=== PATIENT | female | born 1950 | race Caucasian/White ===

== ENCOUNTER 2022-05-04 16:39 | Inpatient (IN) | payer MEDICARE, MEDICAID ==
[~2022-05-04] VITALS: Ht 162.6 cm; Wt 68.0 kg
[2022-05-04] MEDS ORDERED: NS IV 1000 ML 1,000 ML IV SCH (16:45)
[2022-05-04] MEDS ORDERED: KETOROLAC 30 MG/ML VIAL IVP STA (17:01)
[2022-05-04] MEDS ORDERED: ONDANSETRON 4 MG/2 ML (SDV) Z0FRAN IVP STA (17:01)
[2022-05-04 17:02] LABS: BASOPHILS # (AUTO) 0.1 10^3/uL (0.0-0.1); BASOPHILS % (AUTO) 0 % (0-10); EOSINOPHILS % (AUTO) 0 % (0-10); HEMATOCRIT 36 % (35-52); HEMOGLOBIN 11.5 g/dL (11.5-16.0); LYMPHOCYTES # (AUTO) 2.6 10^3/uL (1.0-4.0); LYMPHOCYTES % (AUTO) 12 % (12-44); MEAN CORPUSCULAR HEMOGLOBIN 26 pg (25-34); MEAN CORPUSCULAR HGB CONC 32 g/dL (32-36); MEAN CORPUSCULAR VOLUME 81 fL (80-99); MEAN PLATELET VOLUME 10.4 fL (9.0-12.2); MONOCYTES # (AUTO) 1.3 10^3/uL (0.0-1.0); MONOCYTES % (AUTO) 6 % (0-12); NEUTROPHILS # (AUTO) 18.8 10^3/uL (1.8-7.8); NEUTROPHILS % (AUTO) 82 % (42-75); PLATELET COUNT 247 10^3/uL (130-400); WHITE BLOOD COUNT 22.9 10^3/uL (4.3-11.0)
[2022-05-04 17:03] LABS: BILIRUBIN,URINE NEGATIVE (NEGATIVE); CLARITY,URINE CLEAR; COLOR,URINE YELLOW; GLUCOSE, URINE (UA) NEGATIVE (NEGATIVE); KETONES,URINE TRACE (NEGATIVE); LEUKOCYTE ESTERASE ,URINE NEGATIVE (NEGATIVE); NITRITE,URINE NEGATIVE (NEGATIVE); PH,URINE 5.5 (5-9); PROTEIN,URINE TRACE (NEGATIVE)
[2022-05-04 17:07] LABS: BACTERIA,URINE TRACE /HPF; WBC,URINE 0-2 /HPF
[2022-05-04 17:11] LABS: INR 0.9 (0.8-1.4); PROTHROMBIN TIME PATIENT 12.8 SEC (12.2-14.7)
--- NOTE | 2022-05-04 17:19 | ED General ---
General Chief Complaint: Respiratory Problems Stated Complaint: SOB; COUGH; FEVER; NAUSEA; HEADACHE Nursing Triage Note: PT TO ROOM FS05 VIA W/C WITH C/O SOB, COUGH, AND HEADACHE SINCE YESTERDAY. PT REPORTS HX OF LUNG CANCER. PT REPORTS HER RIGHT LUNG IS COLLAPSED SINCE A LOB ON RIGHT SIDE WAS REMOVED. Source of Information: Patient History of Present Illness Date Seen by Provider: May 04, 2022 Time Seen by Provider: 16:42 Initial Comments 72-year-old female presenting with complaints of 2 days of increased shortness of breath, cough, headache, nausea, vomiting, body aches. She states that she came up from [place] to visit family but has not been able to visit because she has felt so bad. She has another relative that lives by her and is in [place] visiting someone else and they also were sick. She has a history of lung cancer with surgery on her right lung. She wears oxygen at 3 L/min chronically. She has a history of gastric bypass, diabetes, hypertension, lung cancer, fibromyalgia, arthritis. She has not been able to eat or drink very much because of her nausea. She states that due to the gastric bypass she is not able to truly vomit but she occasionally can get up a little bit of liquid. She denies any diarrhea or pain with urination. She has not taken anything today for her headache and body pain Timing/Duration: 2-3 Days Severity: Severe Modifying Factors: worse with Movement Associated Systoms: Chest Pain (from coughing), Cough; No Diaphoresis; Fever/Chills, Headaches, Loss of Appetite, Malaise, Nausea/Vomiting; No Rash, No Seizure; Shortness of Air; No Syncope; Weakness Allergies and Home Medications Allergies Coded Allergies: No Known Drug Allergies (Verified Allergy, Unknown, 12/20/08) Patient Home Medication List Home Medication List Reviewed: Yes Review of Systems Review of Systems Constitutional: chills; No diaphoresis; fever EENTM: no symptoms reported Respiratory: cough, short of breath Cardiovascular: see HPI Gastrointestinal: nausea, vomiting Genitourinary: decreased output Musculoskeletal: other (generalized body aches and pains) Skin: No rash Psychiatric/Neurological: Headache Hematologic/Lymphatic: Denies Blood Clots Past Mhhrufv-Yqcqau-Zoaadh Hx Patient Social History Tobacco Use?: No Smoking Status: Former Smoker Smokeless Tobacco Frequency: Never a User Use of E-Cig and/or Vaping dev: No Use of E-Cig and/or Vaping Rory: Never a User Substance use?: No Alcohol Use?: No Pt feels they are or have been: No Immunizations Up To Date COVID19 Vaccine Electromechanical Technician: MODERNNya Past Medical History Surgery/Hospitalization HX: Lung cancer, Right lung surgery, HTN, DM, Fibromyalgia, Arthritis, Gastric Bypass surgery Physical Exam Vital Signs Vital Signs - First Documented Capillary Refill : Less Than 3 Seconds Height, Weight, BMI Height: '" Weight: lbs. oz. kg; 24.00 BMI Method: General Appearance: Chronically ill, Mild Distress HEENT: PERRL/EOMI; No Moist Mucous Membranes (slightly dry mucous membranes) Neck: Full Range of Motion, Normal Inspection, Non Tender, Supple Respiratory: Chest Non Tender, No Accessory Muscle Use, No Respiratory Distress, Decreased Breath Sounds (right more than left) Cardiovascular: Normal Peripheral Pulses, Tachycardia Gastrointestinal: Normal Bowel Sounds, No Pulsatile Mass, Non Tender, Soft Rectal: Deferred Extremity: Normal Capillary Refill, Normal Inspection, No Pedal Edema Neurologic/Psychiatric: Alert, Oriented x3, supervisor winding department II-XII Norm as Tested Skin: Normal Color, Warm/Dry; No Rash Focused Exam Sepsis Stage: Sepsis Possible Source: Pulmonary Lactate Level 05/04/22 16:55: Lactic Acid Level 0.92 Time of Focused Exam: 17:44 Respiratory: No Accessory Muscle Use, No Respiratory Distress, Decreased Breath Sounds; No Rhonci, No Stridor, No Wheezing Cardiovascular: Normal Peripheral Pulses, Tachycardia Capillary Refill: Less Than 3 Seconds Peripheral Pulses: 2+ Carotid (R), 2+ Carotid (L), 2+ Radial Pulses (R), 2+ Radial Pulses (L) Skin: normal color, warm/dry Lactic Acid Level Laboratory Tests Test 05/04/22 16:55 Lactic Acid Level 0.92 MMOL/L (0.50-2.00) Within 3hrs of presentation: Admin fluids, Admin ABX, Blood cultures prior to ABX's, Focus exam, Lactate level Progress/Results/Core Measures Suspected Sepsis SIRS Temperature: Pulse: 123 Respiratory Rate: 18 Laboratory Tests 05/04/22 16:55: White Blood Count 22.9H Blood Pressure 107 /67 Mean: 80 05/04/22 16:55: Lactic Acid Level 0.92 Laboratory Tests 05/04/22 16:55: Creatinine 0.73, INR Comment 0.9, Platelet Count 247, Total Bilirubin 0.4 Results/Orders Lab Results Laboratory Tests Test 05/04/22 16:45 05/04/22 16:55 Range/Units Urine Color YELLOW Urine Clarity CLEAR Urine pH 5.5 5-9 Urine Specific [place] >=1.030 1.016-1.022 Urine Protein TRACE H NEGATIVE Urine Glucose (UA) NEGATIVE NEGATIVE Urine Ketones TRACE H NEGATIVE Urine Nitrite NEGATIVE NEGATIVE Urine Bilirubin NEGATIVE NEGATIVE Urine Urobilinogen 1.0 < = 1.0 MG/DL Urine Leukocyte Esterase NEGATIVE NEGATIVE Urine RBC (Auto) 2+ H NEGATIVE Urine RBC NONE /HPF Urine WBC 0-2 /HPF Urine Squamous Epithelial Cells 2-5 /HPF Urine Crystals NONE /LPF Urine Bacteria TRACE /HPF Urine Casts NONE /LPF Urine Mucus LARGE H /LPF Urine Culture Indicated NO White Blood Count 22.9 H 4.3-11.0 10^3/uL Red Blood Count 4.43 3.80-5.11 10^6/uL Hemoglobin 11.5 11.5-16.0 g/dL Hematocrit 36 35-52 % Mean Corpuscular Volume 81 80-99 fL Mean Corpuscular Hemoglobin 26 25-34 pg Mean Corpuscular Hemoglobin Concent 32 32-36 g/dL Red Cell Distribution Width 17.4 H 10.0-14.5 % Platelet Count 247 130-400 10^3/uL Mean Platelet Volume 10.4 9.0-12.2 fL Immature Granulocyte % (Auto) 1 % Neutrophils (%) (Auto) 82 H 42-75 % Lymphocytes (%) (Auto) 12 12-44 % Monocytes (%) (Auto) 6 0-12 % Eosinophils (%) (Auto) 0 0-10 % Basophils (%) (Auto) 0 0-10 % Neutrophils # (Auto) 18.8 H 1.8-7.8 10^3/uL Lymphocytes # (Auto) 2.6 1.0-4.0 10^3/uL Monocytes # (Auto) 1.3 H 0.0-1.0 10^3/uL Eosinophils # (Auto) 0.0 0.0-0.3 10^3/uL Basophils # (Auto) 0.1 0.0-0.1 10^3/uL Immature Granulocyte # (Auto) 0.1 0.0-0.1 10^3/uL Neutrophils % (Manual) 87 % Lymphocytes % (Manual) 10 % Monocytes % (Manual) 3 % Prothrombin Time 12.8 12.2-14.7 SEC INR Comment 0.9 0.8-1.4 Activated Partial Thromboplast Time 30 24-35 SEC Sodium Level 141 135-145 MMOL/L Potassium Level 3.8 3.6-5.0 MMOL/L Chloride Level 104 98-107 MMOL/L Carbon Dioxide Level 28 21-32 MMOL/L Anion Gap 9 5-14 MMOL/L Blood Urea Nitrogen 19 H 7-18 MG/DL Creatinine 0.73 0.60-1.30 MG/DL Estimat Glomerular Filtration Rate 88 BUN/Creatinine Ratio 26 Glucose Level 115 H 70-105 MG/DL Lactic Acid Level 0.92 0.50-2.00 MMOL/L Calcium Level 8.7 8.5-10.1 MG/DL Corrected Calcium 9.3 8.5-10.1 MG/DL Total Bilirubin 0.4 0.1-1.0 MG/DL Aspartate Amino Transf (AST/SGOT) 10 5-34 U/L Alanine Aminotransferase (ALT/SGPT) 8 0-55 U/L Alkaline Phosphatase 121 40-136 U/L Troponin I < 0.30 <0.30 NG/ML C-Reactive Protein 31.68 H <0.50 MG/DL Total Protein 6.6 6.4-8.2 GM/DL Albumin 3.3 3.2-4.5 GM/DL Lipase 35 8-78 U/L Influenza Type A (RT-PCR) Not Detected Not Detecte Influenza Type B (RT-PCR) Not Detected Not Detecte SARS-CoV-2 RNA (RT-PCR) Detected H Not Detecte My Orders Orders - YOAN LOVELACE MD Monitor-Rhythm Ecg Trace Only (05/04/22 16:44) Ed Iv/Invasive Line Start (05/04/22 16:44) Cbc With Automated Diff (05/04/22 16:44) Comprehensive Metabolic Panel (05/04/22 16:44) Crp Fs (05/04/22 16:44) Troponin I Fs (05/04/22 16:44) Protime With Inr (05/04/22 16:44) Partial Thromboplastin Time (05/04/22 16:44) Ekg Tracing (05/04/22 16:44) Ns Iv 1000 Ml (Sodium Chloride 0.9%) (05/04/22 16:45) Blood Culture (05/04/22 16:44) Lipase (05/04/22 16:44) Covid 19 Inhouse Test (05/04/22 16:44) Ua Culture If Indicated (05/04/22 16:44) Lactic Acid Analyzer (05/04/22 16:44) Influenza A And B By Pcr (05/04/22 16:44) Isolation Central Supply Req (05/04/22 16:44) Chest 1 View Ap/Pa Only (05/04/22 16:44) Ketorolac Injection (Toradol Injection) (05/04/22 17:01) Ondansetron Injection (Zofran Injectio (05/04/22 17:01) O2 (05/04/22 17:02) Manual Differential (05/04/22 16:55) Dexamethasone Injection (Decadron Inje (05/04/22 17:33) Ceftriaxone 1 Gm Pre-Mix (Rocephin 1 Gm (05/04/22 17:33) Azithromycin Injection (Zithromax Inject (05/04/22 17:33) Lactated Ringers (Lr 1000 Ml Iv Solution (05/04/22 18:00) Ed Admission (Communication) (05/04/22 17:57) Fentanyl Inj (Sublimaze Injection) (05/04/22 20:08) Vital Signs/I&O 05/04/22 05/04/22 05/04/22 16:44 16:44 16:44 Temp 38.2 Pulse 123 Resp 18 B/P (MAP) 107/67 (80) Pulse Ox 95 95 O2 Delivery Nasal Cannula Nasal Cannula Nasal Cannula O2 Flow Rate 3.00 3.00 3.00 Capillary Refill : Less Than 3 Seconds Blood Pressure Mean: 80 Progress Note #1: Progress Note Obtain swab for COVID and influenza. Check basic labs as well as blood cultures and lactic acid. Electrocardiogram for her fast heart rate and palpitations. Chest x-ray to evaluate for pneumonia or acute pulmonary issue. Continue with home oxygen at 3 L/min. Give normal saline 1 L IV fluid bolus for hydration, Toradol for headache and pain, Zofran for nausea. Differential diagnosis includes COVID, influenza, pneumonia, sepsis, dehydration, UTI, gastritis, gastroenteritis Progress Note #2: Progress Note Labs shows elevated white blood cell count 22.9 thousand. She does have a left shift. Her lactic acid is normal at 0.92. Chemistry panel shows elevated CRP but negative troponin and no acute significant abnormality on her electrolytes. Urinalysis is concentrated with greater than 1.030 specific gravity. She does not have leukocyte esterase, nitrites, bacteria. She does have ketones in her urine. Her heart rate is down to 10 5-1 10 from the initial 120 that she was. Her blood pressure is improved to 116/56 from her initial 107 systolic pressure. She is satting 97 to 98% on her home 3 L of oxygen. Influenza swab was negative but COVID swab was positive With her tachycardia, elevated white blood cell count, positive COVID infection and possible pneumonia on chest x-ray she would meet sepsis criteria. She is not septic shock or severe sepsis as there is no organ injury. Will check with Dr. Mckeon the on-call hospitalist about admission. [address] Mckeon, and she accepted the patient for admission. She will go to a [facility] floor bed and Dr. Mckeon will place queued orders. We will continue IV fluids lactated Ringer's 150 mils per hour. Administer 10 mg of IV Decadron, Rocephin 1 g IV, Zithromax 500 mg IV to try and help with her diagnosis of COVID and possible pneumonia in the right lower lobe. Progress Note #3: Progress Note Just prior to EMS transporting the patient to [place] she was complaining of her headache pounding again. Initially she had told me that her headache was improved with initial treatment. Will administer fentanyl 50 mcg IV prior to transfer to try and help with pain ECG Initial ECG Impression Date: May 04, 2022 Initial ECG Impression Time: 16:50 Initial ECG Rate: 118 Initial ECG Rhythm: S.Tach Initial ECG Comparisson: No Previous ECG Available Comment Sinus tachycardia with heart rate of 118 bpm. ID interval 152 ms. QT interval 323 ms with a QTc interval [address] elevation. Frequent supraventricular premature complexes. No prior tracing available for comparison. Diagnostic Imaging Diagonstic Imaging: Xray Plain Films/CT/US/NM/MRI: chest Comments [facility] [place] NAME: [facility] REC#: [id number] PT STATUS: REG ER : 1950 PHYSICIAN: YOAN LOVELACE MD ADMIT DATE: 05/04/22/ER FS Draft Date of Exam:05/04/22 CHEST 1 VIEW AP/PA ONLY INDICATION: Shortness of breath and cough. FINDINGS: Bilateral pleural effusions, greater right, present. There is lower lobe infiltrate or atelectasis on the right. There is background emphysema. The left clavicle postsurgical. No pneumothorax. No failure pattern. IMPRESSION: 1. Bilateral effusions, greater right. Right perihilar and lower lobe consolidations in part atelectasis. Pneumonia superimposed could not be excluded radiographically. 2. COPD with no pneumothorax or overt failure pattern. Dictated on workstation # [id number] Dict: 05/04/22 1709 Trans: 05/04/221714 [facility] [id number] Interpreted by: PADMINI DOSHI Electronically signed by: Reviewed: Reviewed by Sd Departure Communication (Admissions) Time/Spoke to Admitting Phy: 17:[address] Jorge for the hospitalist service and she accepted the patient for admission. Will admit for sepsis and COVID. Impression Primary Impression: COVID-19 virus infection Additional Impressions: Sepsis Qualified Codes: A41.9 - Sepsis, unspecified organism Dehydration Community acquired pneumonia of right lower lobe of lung Disposition: 30 STILL A PATIENT Condition: Stable Admissions Decision to Admit Reason: Admit from ER (General) Decision to Admit/Date: May 04, 2022 Time/Decision to Admit Time: 17:55 Departure-Patient Inst. Referrals: NO,LOCAL PHYSICIAN (PCP/Family) Primary Care Physician YOAN LOVELACE MD May 04, 2022 17:19
[2022-05-04 17:26] LABS: ALANINE AMINOTRANSFERASE 8 U/L (0-55); ALBUMIN 3.3 GM/DL (3.2-4.5); ALKALINE PHOSPHATASE 121 U/L (40-136); BILIRUBIN,TOTAL 0.4 MG/DL (0.1-1.0); BUN/CREATININE RATIO 26; CALCIUM 8.7 MG/DL (8.5-10.1); CARBON DIOXIDE 28 MMOL/L (21-32); CHLORIDE 104 MMOL/L (98-107); CREATININE SERUM 0.73 MG/DL (0.60-1.30); GFR ESTIMATED 88; GLUCOSE 115 MG/DL (70-105); POTASSIUM 3.8 MMOL/L (3.6-5.0); SODIUM 141 MMOL/L (135-145); TOTAL PROTEIN 6.6 GM/DL (6.4-8.2)
[2022-05-04 17:33] LABS: LYMPHOCYTES % (MANUAL) 10 %; MONOCYTES % (MANUAL) 3 %; NEUTROPHILS % (MANUAL) 87 %
[2022-05-04] MEDS ORDERED: cefTRIAXone 1 GM PRE-MIX 50 ML IV STA (17:33)
[2022-05-04] MEDS ORDERED: AZITHROMYCIN INJECTION 500 MG in NS (IVPB) 250 ML IV STA (17:33)
[2022-05-04] MEDS ORDERED: LACTATED RINGERS 1,000 ML IV SCH (18:00)
[2022-05-04] MEDS ORDERED: fentaNYL INJ 100 MCG/2 ML AMP IVP STA (20:08)
[2022-05-04 20:57] VITALS: BP 121/64
[2022-05-04] MEDS ORDERED: ACETAMINOPHEN 325 MG TABLET PO PRN (21:15)
[2022-05-04] MEDS ORDERED: ONDANSETRON 4 MG/2 ML (SDV) Z0FRAN IV PRN (21:15)
[2022-05-04] MEDS ORDERED: NS IV 1000 ML 1,000 ML ONE (21:16)
[2022-05-04] MEDS: NS IV 1000 ML 1,000 ML IV SCH (21:29)
[2022-05-04] MEDS: ENOXAPARIN 40 MG/0.4 ML (LOVENOX) SYR SC SCH (21:33)
[2022-05-05 00:23] VITALS: BP 114/56
[2022-05-05 03:34] VITALS: BP 129/76
[2022-05-05 07:56] VITALS: BP 155/76
[2022-05-05] MEDS: NS IV 1000 ML 1,000 ML IV SCH ×3 (08:19→20:03)
[2022-05-05] MEDS: guaiFENesin SYRUP 100 MG/5 ML 10 ML (ROBITUSSIN SF) PO PRN ×3 (08:25→21:11)
[2022-05-05 09:04] LABS: BASOPHILS % (AUTO) 0 % (0-10); EOSINOPHILS % (AUTO) 0 % (0-10); HEMATOCRIT 37 % (35-52); HEMOGLOBIN 11.3 g/dL (11.5-16.0); LYMPHOCYTES # (AUTO) 0.5 10^3/uL (1.0-4.0); LYMPHOCYTES % (AUTO) 6 % (12-44); MEAN CORPUSCULAR HEMOGLOBIN 26 pg (25-34); MEAN CORPUSCULAR HGB CONC 31 g/dL (32-36); MEAN CORPUSCULAR VOLUME 84 fL (80-99); MEAN PLATELET VOLUME 10.5 fL (9.0-12.2); MONOCYTES # (AUTO) 0.2 10^3/uL (0.0-1.0); MONOCYTES % (AUTO) 2 % (0-12); NEUTROPHILS # (AUTO) 8.9 10^3/uL (1.8-7.8); NEUTROPHILS % (AUTO) 92 % (42-75); PLATELET COUNT 190 10^3/uL (130-400); WHITE BLOOD COUNT 9.7 10^3/uL (4.3-11.0)
[2022-05-05 09:21] LABS: CREATININE SERUM 0.68 MG/DL (0.60-1.30)
[2022-05-05 11:15] VITALS: BP 131/64
[2022-05-05] MEDS ORDERED: LEVOTHYROXINE 50 MCG (LEVOTHROID) TAB PO NR (11:15)
[2022-05-05] MEDS ORDERED: VERAPAMIL SR 240 MG (CALAN SR) TAB PO NR (11:15)
[2022-05-05] MEDS: IBUPROFEN 600 MG (MOTRIN) TAB PO PRN ×2 (11:53→20:13)
--- NOTE | 2022-05-05 14:52 | History & Physical-Hospitalist ---
History of Present Illness HPI/Chief Complaint Ana Lilia Zheng is a 72 year old female with PMH HTN, hypothyroidism, COPD on 3 L continuous oxygen, lung cancer s/p radiation, who presented with shortness of breath. She also reports cough. She is having some chest pain with the cough. She also reports headache. She denies nausea and vomiting. She denies abdominal pain. She denies leg swelling. She has undergone several bronchoscopies for her lung cancer. She underwent radiaton. She has not done chemotherapy. She says they are trying to avoid performing a lobectomy because of her COPD. Source: patient Exam Limitations: no limitations Date Seen 05/05/22 Time Seen by a Provider: 10:20 Attending Physician No,Local Physician PCP Admitting Physician: Patricia Mckeon MD Attending Physician: Jade Calle MD Referring Physician Date of Admission May 04, 2022 at 21:04 Home Medications & Allergies Home Medications Reviewed patient Home Medication Reconciliation performed by pharmacy medication reconciliations automotive lube technician and/or nursing. Patients Allergies have been reviewed. Allergies Allergies Coded Allergies No Known Drug Allergies (Verified12/20/08) Past Bucndpf-Clofxc-Mvxixv Hx Patient Social History Tobacco Use?: No Smoking Status: Former Smoker Smokeless Tobacco Frequency: Never a User Use of E-Cig and/or Vaping dev: No Use of E-Cig and/or Vaping Rory: Never a User Substance use?: No Alcohol Use?: No Pt feels they are or have been: No Current Status status: No status: No Advance Directives: No Communicates: Verbally Primary Language: Faroese Preferred Spoken Language: Faroese Is interpretation needed?: No Sensory deficits: Vision impairment Implanted or Applied Medical D: Orthopedic hardware Past Medical History COPD Hypertension Hypothyroidsim Lung Family Medical History No Pertinent Family Hx Review of Systems Constitutional: malaise, weakness Respiratory: cough, short of breath Cardiovascular: chest pain Gastrointestinal: no symptoms reported Genitourinary: no symptoms reported Musculoskeletal: no symptoms reported Physical Exam Physical Exam Vital Signs Vital Signs - First Documented Capillary Refill : Less Than 3 Seconds Height, Weight, BMI Height: '" Weight: lbs. oz. kg; 25.71 BMI Method: General Appearance: No Apparent Distress, WD/WN HEENT: PERRL/EOMI, Pharynx Normal Neck: Normal Inspection, Supple Respiratory: No Respiratory Distress, Decreased Breath Sounds Cardiovascular: Regular Rate, Rhythm, No Murmur Gastrointestinal: Normal Bowel Sounds, Non Tender, Soft Extremity: Normal Inspection, Non Tender, No Pedal Edema Neurologic/Psychiatric: Alert, Oriented x3, No Motor/Sensory Deficits, Depressed Affect Skin: Normal Color, Warm/Dry Results Results/Procedures Labs Laboratory Tests 05/04/22 16:55 05/05/22 08:55 Patient resulted labs reviewed. Imaging: Reviewed Imaging Report Assessment/Plan Admission Diagnosis Sepsis due to pneumonia Admission Status: Inpatient Order (span 2 midnights) Reason for Inpatient Admission: IV antibiotics Assessment and Plan Sepsis due to pneumonia COVID-19 COPD Chronic respiratory failure with hypoxia Lung cancer SIRS+ with fever, tachycardia, leukocytosis CXR with right lower lobe infiltrate Rocephin and Azithromycin COVID positive Decadron Oxygen requirement at baseline MAT protocol HTN Hypothyroidism Continue home meds DVT prophylaxis: Lovenox Diagnosis/Problems Diagnosis/Problems (1) Sepsis Status: Acute Qualifiers: Sepsis type: sepsis due to unspecified organism Sepsis acute organ dysfunction status: without acute organ dysfunction Qualified Codes: A41.9 - Sepsis, unspecified organism (2) Community acquired pneumonia of right lower lobe of lung Status: Acute (3) COVID-19 virus infection Status: Acute (4) COPD (chronic obstructive pulmonary disease) Status: Chronic (5) Chronic respiratory failure with hypoxia Status: Chronic (6) Lung cancer Status: Chronic Qualifiers: Laterality: right Lung location: unspecified part of lung Qualified Codes: C34.91 - Malignant neoplasm of unspecified part of right bronchus or lung (7) HTN (hypertension) Status: Chronic (8) Hypothyroid Status: Chronic JADE CALLE MD May 05, 2022 14:52
[2022-05-05] MEDS ORDERED: RT-ALBUINH IH (15:39)
[2022-05-05] MEDS ORDERED: COLE1TAB PO (15:40)
[2022-05-05] MEDS ORDERED: CLC600T PO (15:40)
[2022-05-05] MEDS ORDERED: MULT-1136 PO (15:42)
[2022-05-05] MEDS ORDERED: CNC1KV IM (15:42)
[2022-05-05] MEDS ORDERED: FURO20TA4 PO (15:43)
[2022-05-05] MEDS ORDERED: GUAI600T43 PO (15:44)
[2022-05-05] MEDS ORDERED: FLUT1BLS15 IH (15:46)
[2022-05-05] MEDS ORDERED: HYDR-3820 PO (15:46)
[2022-05-05] MEDS ORDERED: LEVO50CA4 PO (15:47)
[2022-05-05] MEDS ORDERED: LISI30TA5 PO (15:47)
[2022-05-05] MEDS ORDERED: TIZA-186 PO (15:48)
[2022-05-05] MEDS ORDERED: VERA240C2 PO (15:48)
[2022-05-05] MEDS ORDERED: PANT40TA52 PO (15:48)
[2022-05-05] MEDS ORDERED: NF-ZOL12.5 PO (15:49)
[2022-05-05] MEDS ORDERED: LORA10TA7 PO (15:49)
[2022-05-05] MEDS ORDERED: IRBE300T17 PO (15:50)
[2022-05-05 15:58] VITALS: BP 108/58
[2022-05-05] MEDS ORDERED: AZITHROMYCIN 250 MG TAB (ZITHROMAX) PO SCH (18:00)
[2022-05-05] MEDS ORDERED: cefTRIAXone 1 GM PRE-MIX 50 ML IV SCH (18:00)
[2022-05-05 19:03] VITALS: BP 131/69
[2022-05-05] MEDS: ENOXAPARIN 40 MG/0.4 ML (LOVENOX) SYR SC SCH (20:04)
[2022-05-05] MEDS ORDERED: lisINopril 20 MG (PRINIVIL) TABLET PO SCH (21:00)
[2022-05-06 00:04] VITALS: BP 125/65
[2022-05-06 03:49] VITALS: BP 120/77
[2022-05-06] MEDS: IBUPROFEN 600 MG (MOTRIN) TAB PO PRN ×2 (04:05→12:12)
[2022-05-06] MEDS: guaiFENesin SYRUP 100 MG/5 ML 10 ML (ROBITUSSIN SF) PO PRN (04:05)
[2022-05-06] MEDS ORDERED: LEVOTHYROXINE 50 MCG (LEVOTHROID) TAB PO SCH (06:30)
[2022-05-06 07:36] VITALS: BP 138/66
[2022-05-06 07:49] VITALS: BP 138/66
[2022-05-06] MEDS ORDERED: RT-ALBUTEROL HFA 8.5 GM INHALER IH PRN (08:00)
[2022-05-06] MEDS ORDERED: VERAPAMIL SR 240 MG (CALAN SR) TAB PO SCH (09:00)
[2022-05-06] MEDS ORDERED: RT-ALBUTEROL HFA 8.5 GM INHALER IH SCH (10:00)
[2022-05-06] MEDS ORDERED: CEFD300C3 PO (10:29)
[2022-05-06] MEDS ORDERED: AZIT250T12 PO (10:29)
[2022-05-06] MEDS ORDERED: PRED10TA22 PO (10:29)
[2022-05-06] MEDS ORDERED: guaiFENesin/DM (ROBITUSSIN DM) 10 ML UDC PO PRN (10:30)
[2022-05-06] MEDS ORDERED: CEFDINIR 300 MG (OMNICEF) CAP PO NR (10:45)
[2022-05-06 11:09] VITALS: BP 135/63
[2022-05-06 13:18] VITALS: BP 135/63
--- NOTE | 2022-05-06 17:23 | Discharge Summary ---
Discharge Summary Hospital Course Problems/Dx: (1) Sepsis Status: Acute Qualifiers: Qualified Codes: A41.9 - Sepsis, unspecified organism (2) Community acquired pneumonia of right lower lobe of lung Status: Acute (3) COVID-19 virus infection Status: Acute (4) COPD (chronic obstructive pulmonary disease) Status: Chronic (5) Chronic respiratory failure with hypoxia Status: Chronic (6) Lung cancer Status: Chronic Qualifiers: Qualified Codes: C34.91 - Malignant neoplasm of unspecified part of right bronchus or lung (7) HTN (hypertension) Status: Chronic (8) Hypothyroid Status: Chronic Hospital Course Date of Admission: May 04, 2022 at 21:04 Admission Diagnosis : Family Physician/Provider: No,Local Physician Date of Discharge: 05/06/22 Discharge Diagnosis: [ ] Hospital Course: [ ] Labs and Pending Lab Test: Microbiology 05/04/22 Blood Culture - Preliminary, Resulted No growth Home Meds Active Prednisone 10 Mg Tab.ds.pk 10 Mg PO DAILY Take 6 tabs(60mg)daily,decrease by 1 tab(10MG)daily. Azithromycin 250 Mg Tablet 250 Mg PO DAILY 3 Days Cefdinir 300 Mg Capsule 300 Mg PO BID 5 Days Reported Irbesartan 300 Mg Tablet 300 Mg PO DAILY Loratadine 10 Mg Tablet 10 Mg PO DAILY Zolpidem Tartrate ER (Zolpidem Tartrate) 12.5 Mg Tab.mphase 12.5 Mg PO HS PRN Verapamil ER (Verapamil HCl) 240 Mg Cap24h.pel 240 Mg PO DAILY Tizanidine HCl 4 Mg Tablet 4 Mg PO HS Pantoprazole Sodium 40 Mg Tablet.dr 40 Mg PO HS Lisinopril 30 Mg Tablet 30 Mg PO HS Levothyroxine (Levothyroxine Sodium) 50 Mcg Capsule 50 Mcg PO DAILY Hydrocodone-Acetamin 10-325 mg (Hydrocodone/Acetaminophen) 10 Mg-325 Mg Tablet 1 Each PO Q6H PRN Trelegy Ellipta 200-62.5-25 (Fluticasone/Umeclidin/Vilanter) 200-62.5 Blst.w.dev 1 Each IH DAILY Mucinex (Guaifenesin) 600 Mg Tab.er.12h 1,200 Mg PO Q12H TAKES 2 (600MG) TAB Furosemide 20 Mg Tablet 20 Mg PO DAILY Cyanocobalamin Injection (Cyanocobalamin) 1,000 Mcg/Ml Inj 1,000 Mcg IM WEEKLY INJECTS ON THURSDAY Multivitamin 1 Each Tablet 1 Each PO DAILY Colestipol HCl 1 Gram Tablet 2 Gm PO BID TAKES 2 (1GM) TABS Calcium Carbonate 600 Mg Calcium (1500 Mg) Tablet 600 Mg PO DAILY Proair Hfa (Albuterol Sulfate) 1 Puff Puff 2 Puff IH Q6H PRN 1 PUFF = 90 MCG Assessment/Pt Instructions See instructions Discharge Planning: >30 minutes discharge planning Discharge Instructions Discharge Diet: No Restrictions Activity as Tolerated: Yes Discharge Physical Examination Vital Signs Vital Signs Date Time Temp Pulse Resp B/P (MAP) Pulse Ox O2 Delivery O2 Flow Rate FiO2 05/06/22 13:18 36.6 60 18 135/63 97 Nasal Cannula 3.00 Allergies: Coded Allergies: No Known Drug Allergies (Verified , 12/20/08) Discharge Summary Date of Admission May 04, 2022 at 21:04 Date of Discharge May 06, 2022 at 13:18 Discharge Date: May 06, 2022 Discharge Time: 13:18 Admission Diagnosis Sepsis due to pneumonia Discharge Diagnosis Sepsis due to pneumonia COVID-19 COPD Chronic respiratory failure with hypoxia Lung cancer (1) Sepsis Status: Acute Qualifiers: Qualified Codes: A41.9 - Sepsis, unspecified organism (2) Community acquired pneumonia of right lower lobe of lung Status: Acute (3) COVID-19 virus infection Status: Acute (4) COPD (chronic obstructive pulmonary disease) Status: Chronic (5) Chronic respiratory failure with hypoxia Status: Chronic (6) Lung cancer Status: Chronic Qualifiers: Qualified Codes: C34.91 - Malignant neoplasm of unspecified part of right bronchus or lung (7) HTN (hypertension) Status: Chronic (8) Hypothyroid Status: Chronic JADE MCKEON MD May 06, 2022 17:23
== END 2022-05-06 13:18 | disposition home or self-care (01) | DRG 871 ==
LOC: EDUNIT# 16:39 → ER FS 16:41 → 4TH 21:04
PROVIDERS: ADMIT Family Medicine; ATTEND Internal Medicine
DX: A41.89 Other specified sepsis (principal); U07.1 COVID-19; J12.82 Pneumonia due to coronavirus disease 2019; J96.11 Chronic respiratory failure with hypoxia; J43.9 Emphysema, unspecified; E86.0 Dehydration; E11.9 Type 2 diabetes mellitus without complications; I10 Essential (primary) hypertension; M79.7 Fibromyalgia; M19.91 Primary osteoarthritis, unspecified site; E03.9 Hypothyroidism, unspecified; Z87.891 Personal history of nicotine dependence; Z85.118 Personal history of other malignant neoplasm of bronchus and lung; Z90.2 Acquired absence of lung [part of]; Z98.84 Bariatric surgery status
CPT/HCPCS: 36415; 71045; 80048; 80053; 81000; 83605; 83690; 84145; 84484; 85007; 85025; 85027; 85610; 85730; 86141; 87040; 87636; 93005; 93041; 94640; 94664

== ENCOUNTER 2022-12-27 15:37 | Emergency (ER) | payer MEDICARE, MEDICAID ==
[~2022-12-27 15:37] MED LIST: ALBU8.5H6 IH; AZIT250T12 PO; CEFD300C3 PO; CLC600T PO; CNC1KV IM; COLE1TAB PO; FLUT1BLS15 IH; FURO20TA4 PO; GUAI600T43 PO; HYDR-3820 PO; IRBE300T17 PO; LEVO50CA4 PO; LISI30TA5 PO; LORA10TA7 PO; MULT-1136 PO; NF-ZOL12.5 PO; PANT40TA52 PO; PRED10TA22 PO; TIZA-186 PO; VERA240C2 PO
[2022-12-27] MEDS ORDERED: MIDAZOLAM 5 MG/5 ML (VERSED) VIAL INJ ONE (15:40)
[2022-12-27] MEDS ORDERED: EPINEPHrine 0.1 MG/ML 10 ML (HOSPIRA) SYR INJ ONE (15:40)
[2022-12-27] MEDS ORDERED: CATHETER FLUSH 10 ML SYR IVP ONE (15:40)
[2022-12-27] MEDS ORDERED: SUCCINYLCHOLINE INJ 20 MG/1 ML 10 ML VIAL INJ ONE (15:40)
--- NOTE | 2022-12-27 16:17 | ED CPR ---
HPI-CPR General Stated Complaint: UNRESPONSIVE Source of Information: EMS, Family Exam Limitations: Other (actively being coded) History of Present Illness Date Seen by Provider: Dec 27, 2022 Time Seen by Provider: 15:36 Initial Comments 72-year-old female presenting by EMS from her daughter's home here in [place]. Patient lives in [facility]. She has a longstanding history of lung cancer and was receiving chemotherapy and radiation treatments. She also has a history of hypothyroidism and high blood pressure and COPD. This afternoon she was feeling weak and family had checked her blood pressure and found it to be low at approximately 100/50. EMS was activated to evaluate her and bring her to the emergency department. After arrival by EMS the left after on dual content into their ambulance. As they were transporting here to the emergency department she stopped breathing and lost her pulse. They reported that she went into asystole and they put her on AED monitor and started breathing for a with a [id number] as well as during chest compressions. Since it was a BLS crew they did not start any IV access. They did continue to assist breathing with bag valve mask and the AED never advised a shock so they were continuing chest compressions. On arrival to the ED a pulse check was performed and she had agonal respiration but was asystole and no palpable or auscultory heart beat or pulse. MARIANELA compression device was applied and continued chest compressions while ventilating with bag valve mask. Epinephrine 1 mg IV was ordered and patient found to have port right upper chest wall that was already accessed on arrival to ED. CPR continued via ACLS protocols while I prepared equipment for intubation and an intubation tray was pulled from the [facility] for medications for RSI. She was given a 2nd dose of epinephrine prior to RSI medications of Midazolam 2 mg IV with Succinyl Choline 100 mg IV. Then using a MAC3 blade and 7.0 ETT I placed the tube and visualized it going through her vocal cords and secured at 22 cm at the gums. She had good color change on CO2 detector and equal breath sounds. She did have yellow colored mucus and liquid in the ETT that was suctioned. A third dose of epinephrine 1 mg IV was administered and continued chest compressions with MARIANELA device and ventilation with bag respirations through ET tube. After 2 minutes of circulation of the epinephrine a pulse and rhythm check was performed and patient was still in asystole. She continues to be in asystole and had fixed pupils that were not reactive. With CPR for over 30 minutes and no response or return of spontaneous circulation it was felt that further medicine and CPR was futile and she was pronounced at 1559. Initial Complaints: Collapsed, Dyspnea Witnessed Arrest: Yes Bystander CPR: Yes Pre Hospital Treatment: Bag Valve Mask, CPR/Thumper, Oxygen Allergies and Home Medications Allergies Coded Allergies: No Known Drug Allergies (Verified , 12/20/08) Patient Home Medication List Home Medication List Reviewed: Yes Albuterol Sulfate (Ventolin Hfa) 1 Puff Puff, 2 PUFF IH Q6H PRN for SHORTNESS OF BREATH, (Reported) Entered as Reported by: JANICE HUTCHINS on 05/05/22 1539 Azithromycin (Azithromycin) 250 Mg Tablet, 250 MG PO DAILY Prescribed by: JADE MCKEON on 05/06/22 1029 Calcium Carbonate (Calcium Carbonate) 600 Mg Calcium (1500 Mg) Tablet, 600 MG PO DAILY, (Reported) Entered as Reported by: JANICE HUTCHINS on 05/05/22 1540 Cefdinir (Cefdinir) 300 Mg Capsule, 300 MG PO BID Prescribed by: JADE MCKEON on 05/06/22 1029 Colestipol HCl (Colestipol HCl) 1 Gram Tablet, 2 GM PO BID, (Reported) Entered as Reported by: JANICE HUTCHINS on 05/05/22 1540 Cyanocobalamin (Cyanocobalamin Injection) 1,000 Mcg/Ml Inj, 1,000 MCG IM WEEKLY, (Reported) Entered as Reported by: JANICE HUTCHINS on 05/05/22 1542 Fluticasone/Umeclidin/Vilanter (Trelegy Ellipta 200-62.5-25) 200-62.5 Blst.w.dev, 1 EACH IH DAILY, (Reported) Entered as Reported by: JANICE HUTCHINS on 05/05/22 1546 Furosemide (Furosemide) 20 Mg Tablet, 20 MG PO DAILY, (Reported) Entered as Reported by: JANICE HUTCHINS on 05/05/22 1543 Guaifenesin (Mucinex) 600 Mg Tab.er.12h, 1,200 MG PO Q12H, (Reported) Entered as Reported by: JANICE HUTCHINS on 05/05/22 1544 Hydrocodone/Acetaminophen (Hydrocodone-Acetamin 10-325 mg) 10 Mg-325 Mg Tablet, 1 EACH PO Q6H PRN for PAIN-MODERATE (5-7), (Reported) Entered as Reported by: JANICE HUTCHINS on 05/05/22 154 Irbesartan (Irbesartan) 300 Mg Tablet, 300 MG PO DAILY, (Reported) Entered as Reported by: JANICE HUTCHINS on 05/05/22 1550 Levothyroxine Sodium (Levothyroxine) 50 Mcg Capsule, 50 MCG PO DAILY, (Reported) Entered as Reported by: JANICE HUTCHINS on 05/05/22 154 Lisinopril (Lisinopril) 30 Mg Tablet, 30 MG PO HS, (Reported) Entered as Reported by: JANICE HUTCHINS on 05/05/22 154 Loratadine (Loratadine) 10 Mg Tablet, 10 MG PO DAILY, (Reported) Entered as Reported by: JANICE HUTCHINS on 05/05/22 154 Multivitamin (Multivitamin) 1 Each Tablet, 1 EACH PO DAILY, (Reported) Entered as Reported by: JANICE HUTCHINS on 05/05/22 154 Pantoprazole Sodium (Pantoprazole Sodium) 40 Mg Tablet.dr, 40 MG PO HS, (Reported) Entered as Reported by: JANICE HUTCHINS on 05/05/22 154 Prednisone (Prednisone) 10 Mg Tab.ds.pk, 10 MG PO DAILY Prescribed by: JADE MCKEON on 05/06/22 1029 Tizanidine HCl (Tizanidine HCl) 4 Mg Tablet, 4 MG PO HS, (Reported) Entered as Reported by: JANICE HUTCHINS on 05/05/22 154 Verapamil HCl (Verapamil ER) 240 Mg Cap24h.pel, 240 MG PO DAILY, (Reported) Entered as Reported by: JANICE HUTCHINS on 05/05/22 154 Zolpidem Tartrate (Zolpidem Tartrate ER) 12.5 Mg Tab.mphase, 12.5 MG PO HS PRN for SLEEP, (Reported) Entered as Reported by: JANICE HUTCHINS on 05/05/22 154 Review of Systems Review of Systems Constitutional: see HPI, weakness Other Comments unable to obtain full ROS due to patient's status of being unresponsive and no cardiac activity. Past Fkkrmlq-Ezstgb-Osfbqi Hx Past Medical History Surgery/Hospitalization HX: Lung cancer, Right lung surgery, HTN, DM, Fibromyalgia, Arthritis, Gastric Bypass surgery COPD Hypertension Hypothyroidsim Lung Family Medical History No Pertinent Family Hx Physical Exam Vital Signs Capillary Refill : Height, Weight, BMI Height: '" Weight: lbs. oz. kg; 25.71 BMI Method: General Appearance: Chronically ill, Thin, Other (unresponsive and no cardiac activity on monitor, with auscultation or palpation for central pulse) HEENT: Other (pupils are fixed and dilated and not responding to light) Respiratory: Rhonci (with bag valve mask respirations) Cardiovascular: Other (asystole and no palpable pulse or auscultated heart beat) Extremity: Normal Capillary Refill (with chest compressions ) Neurologic/Psychiatric: Other (unresponsive) Skin: Cool, Pallor Procedures/Interventions Reason for Intubation: cardiopulmonary arrest Date of ETT Placement: Dec 27, 2022 Time of ETT Placement: 15:54 Intubation Method: orotracheal Tube Size: 7 Medications: Succinylcholine (100 mg), Versed (2 mg) Positive End Tide CO2: Yes Breath Sounds after Intubation: bilateral-equal Intubation Complications: no complications Post Intubation Xray: No Due to her cardiopulmonary arrest and not responding would just pjw-[id number] ventilation and chest compressions and ET tube was placed. Using a MAC 3 blade and laryngoscope and orotracheal ET tube that was 7.0 was placed and secured at 22 cm at the gum. She was premedicated with midazolam 2 mg IV and succinylcholine 100 mg IV. I visualized the tube passing through the cords. She did have a lot of yellow secretions that were suctioned from the ET tube. She had good color change on CO2 detector and equal bilateral breath sounds. CPR: 72-year-old female presenting by EMS from her daughter's home here in [place]. Patient lives in [facility]. She has a longstanding history of lung cancer and was receiving chemotherapy and radiation treatments. She also has a history of hypothyroidism and high blood pressure and COPD. This afternoon she was feeling weak and family had checked her blood pressure and found it to be low at approximately 100/50. EMS was activated to evaluate her and bring her to the emergency department. After arrival by EMS the left after on dual content into their ambulance. As they were transporting here to the emergency department she stopped breathing and lost her pulse. They reported that she went into asystole and they put her on AED monitor and started breathing for a with a [id number] as well as during chest compressions. Since it was a S crew they did not start any IV access. They did continue to assist breathing with bag valve mask and the AED never advised a shock so they were continuing chest compressions. On arrival to the ED a pulse check was performed and she had agonal respiration but was asystole and no palpable or auscultory heart beat or pulse. MARIANELA compression device was applied and continued chest compressions while ventilating with bag valve mask. Epinephrine 1 mg IV was ordered and patient found to have port right upper chest wall that was already accessed on arrival to ED. CPR continued via ACLS protocols while I prepared equipment for intubation and an intubation tray was pulled from the [facility] for medications for RSI. She was given a 2nd dose of epinephrine prior to RSI medications of Midazolam 2 mg IV with Succinyl Choline 100 mg IV. Then using a MAC3 blade and 7.0 ETT I placed the tube and visualized it going through her vocal cords and secured at 22 cm at the gums. She had good color change on CO2 detector and equal breath sounds. She did have yellow colored mucus and liquid in the ETT that was suctioned. A third dose of epinephrine 1 mg IV was administered and continued chest compressions with MARIANELA device and ventilation with bag respirations through ET tube. After 2 minutes of circulation of the epinephrine a pulse and rhythm check was performed and patient was still in asystole. She continues to be in asystole and had fixed pupils that were not reactive. With CPR for over 30 minutes and no response or return of spontaneous circulation it was felt that further medicine and CPR was futile and she was pronounced at 1559. Rhythm: Asystole Progress/Results/Core Measures Progress Progress Note : Progress Note 72-year-old female presenting by EMS from her daughter's home here in [place]. Patient lives in [facility]. She has a longstanding history o f lung cancer and was receiving chemotherapy and radiation treatments. She also has a history of hypothyroidism and high blood pressure and COPD. This afternoon she was feeling weak and family had checked her blood pressure and found it to be low at approximately 100/50. EMS was activated to evaluate her and bring her to the emergency department. After arrival by EMS the left after on dual content into their ambulance. As they were transporting here to the emergency department she stopped breathing and lost her pulse. They reported that she went into asystole and they put her on AED monitor and started breathing for a with a [id number] as well as during chest compressions. Since it was a BLS crew they did not start any IV access. They did continue to assist breathing with bag valve mask and the AED never advised a shock so they were continuing chest compressions. On arrival to the ED a pulse check was performed and she had agonal respiration but was asystole and no palpable or auscultory heart beat or pulse. MARIANELA compression device was applied and continued chest compressions while ventilating with bag valve mask. Epinephrine 1 mg IV was ordered and patient found to have port right upper chest wall that was already accessed on arrival to ED. CPR continued via ACLS protocols while I prepared equipment for intubation and an [facility] for RSI. She was given a 2nd dose of epinephrine prior to RSI medications of Midazolam 2 mg IV with Succinyl Choline 100 mg IV. Then using a MAC3 blade and 7.0 ETT I placed the tube and visualized it going through her vocal cords and secured at 22 cm at the gums. She had good color change on CO2 detector and equal breath sounds. She did have yellow colored mucus and liquid in the ETT that was suctioned. A third dose of epinephrine 1 mg IV was administered and continued chest compressions with MARIANELA device and ventilation with bag respirations through ET tube. After 2 minutes of circulation of the epinephrine a pulse and rhythm check was performed and patient was still in asystole. She continues to be in asystole and had fixed pupils that were not reactive. With CPR for over 30 minutes and no response or return of spontaneous circulation it was felt that further medicine and CPR was futile and she was pronounced at 1559. Patient has primary care through [facility] and sees [employer] Criss Cruz. When trying to contact the [employer] the chucking machine set up operator tool advised that she works under a Dr. Merchant so left a voicemail message for her to contact PCP and let them know that the patient had and find out if they were agreeable to signing certificate. Also discussed with Division Officer [employer] professional sports scout for [employer], Anuel Manzano. She was advised of the situation and since patient was not deemed a circuit board assembler case they will work with home to contact PCP in [place] and if they do not sign the certificate it will go back to circuit board assembler's office and they will do a chart review to be able to sign the certificate. From the circuit board assembler's office standpoint patient can be released to home and they will work with Shirley Feng to get certificate signed by Primary care provider. Critical Care Note Critical Care Total Time (minutes) 50 minutes Progress 50 minutes of critical care time was spent with the patient. Time excluded separately billable procedures. Time was spent obtaining history from the paramedics and family, review of electronic medical record, ordering medicine and interventions and reviewing response, discussion with consultants, discussion with family about the unsuccessful CPR, documentation in the chart. Patient presented in asystole and agonal respiration. She required my immediate and constant intervention and treatment to try and regain return of spontaneous circulation. Departure Impression Primary Impression: Asystole Additional Impression: Unsuccessful cardiopulmonary resuscitation Disposition: 20 (1559) Condition: (1559) Departure-Patient Inst. Referrals: NO,LOCAL PHYSICIAN (PCP/Family) Primary Care Physician YOAN LOVELACE MD Dec 27, 2022 16:17
== END 2022-12-27 19:02 | disposition expired ==
LOC: EDUNIT# 15:37 → ER FS 15:39
DX: I46.9 Cardiac arrest, cause unspecified (principal); Z85.118 Personal history of other malignant neoplasm of bronchus and lung; Z92.21 Personal history of antineoplastic chemotherapy; Z92.3 Personal history of irradiation
CPT/HCPCS: 99283